=== PATIENT | female | born 1950 | race African-American/Black ===

== ENCOUNTER → 2017-07-23 | Outpatient (CLI) | payer MEDICARE, OTHER ==
--- NOTE | 2017-07-23 11:30 | RAD ---
DATE: 07/23/2017 EXAM: MAMMO JERRY SCREENING BILATERAL HISTORY: Routine screening COMPARISON: Baseline study This study was interpreted with the benefit of Computerized Aided Detection (CAD). The breast parenchyma shows scattered fibroglandular densities. Breast parenchyma level B. FINDINGS: 2-D and 3-D tomosynthesis imaging was performed. In the right breast there is a 2.2 cm mass located at the 12:00 location. Its margins are irregular. It contains several coarse calcifications. On the right oblique view there is a suggestion of an additional smaller nodule partially visualized posteriorly just superior to the level of the nipple line. This is best demonstrated on left oblique jerry image #13. This density is not visible on the right cc view, probably due to its far posterior position. In the left breast there is a 12 mm nodule present in the upper outer quadrant best visualized on CC jerry image #51. There are no associated calcifications. IMPRESSION: Bilateral breast nodules as described above. Diagnostic mammography is suggested including bilateral straight mediolateral views and additional CC imaging on the right in attempt to better demonstrate the far posterior right breast nodule. Bilateral breast ultrasound will also be indicated. BI-RADS CATEGORY: 0 INCOMPLETE: NEEDS ADDITIONAL IMAGING EVALUATION AND/OR PRIOR MAMMOGRAMS FOR COMPARISON. RECOMMENDED FOLLOW-UP: ADD ADDITIONAL IMAGING PQRS compliance statement: Patient information was entered into a reminder system with a target due date for the next mammogram. Mammography is a sensitive method for finding small breast cancers, but it does not detect them all and is not a substitute for careful clinical examination. A negative mammogram does not negate a clinically suspicious finding and should not result in delay in biopsying a clinically suspicious abnormality. "Our facility is accredited by the [employer] Mammography [employer]."
== END | disposition home or self-care (01) ==
LOC: MAMMO 08:31
PROVIDERS: ATTEND Nurse Practitioner Family
DX: Z12.31 Encounter for screening mammogram for malignant neoplasm of breast (principal); N63.0 Unspecified lump in unspecified breast
CPT/HCPCS: 77063; 77067

== ENCOUNTER → 2017-07-27 | Outpatient (CLI) | payer MEDICARE, OTHER ==
--- NOTE | 2017-07-27 17:58 | RAD ---
Left lower extremity venous Doppler dated 07/27/2017. No comparison available. Clinical indication: Pain and swelling. FINDINGS: Grayscale, color-flow and spectral waveform analysis performed to include the deep venous system of the left lower extremity. Normal compressibility, phasicity and augmentation of flow throughout. No filling defects are seen. There is a small complex joint effusion on the left. IMPRESSION: 1. No evidence of left lower extremity deep vein thrombosis. 2. Small complex knee joint effusion on the left. Electronically signed by: Devyn Tenorio MD (07/27/2017 5:55 PM) [facility]
== END | disposition home or self-care (01) ==
LOC: US 17:06
PROVIDERS: ATTEND Physician Assistant Medical
DX: M25.461 Effusion, right knee (principal); M79.89 Other specified soft tissue disorders
CPT/HCPCS: 93971

== ENCOUNTER → 2017-07-29 | Outpatient (CLI) | payer MEDICARE, OTHER ==
--- NOTE | 2017-07-29 12:54 | RAD ---
DATE: 07/29/2017 EXAM: DIGITAL DIAGNOSTIC BILATERAL, BREAST BILATERAL HISTORY: Suspicious screening study COMPARISON: 07/23/2017 This study was interpreted with the benefit of Computerized Aided Detection (CAD). The breast parenchyma shows scattered fibroglandular densities. Breast parenchyma level B. FINDINGS: Additional views of the right breast confirm the presence of a somewhat ill-defined 7-8mm opacity located far posterolaterally at approximately the 9:00 location. A 2.2 mm irregular mass containing coarse calcifications is again noted at the 12:00 location in the right breast. A 12 mm nodule is again noted at the 1 o'clock location in the left breast. Some of its margins are smooth while others are less clearly defined. Bilateral breast ultrasound, 07/29/2017: A targeted ultrasound exam of the right breast at the 12:00 location demonstrates a 13 x 15 x 9 mm heterogeneous nodule. It is wider than tall. It appears to be smoothly lobulated. Peripheral calcifications are present. There is refractive shadowing along its margins. There is no significant posterior acoustic enhancement or shadowing. No internal color flow is seen. The presence of coarse calcification suggests that this is most likely a fibroadenoma. The posterolateral aspect of the right breast was then targeted. At the 8:00 location approximates 7 cm from the nipple there is a 6 x 8 x 6 mm hypoechoic nodule. Its margins are lobulated and somewhat irregular. There appears to be internal color flow. It lies posteriorly near the muscle. The sonographic features are suspicious for malignancy. This probably corresponds in location to the posterolateral mammographic abnormality. At the 12:30 location in the left breast approximately 6 cm from the nipple there is a smooth oval-shaped hypoechoic nodule measuring 9 x 9 x 5 mm. It is wider than tall. No significant posterior acoustic enhancement or shadowing is seen. No internal color flow is evident. This has a fairly benign appearance and is probably a fibroadenoma or complicated cyst. IMPRESSION: 1. Probable fibroadenoma at the 12:00 location in the right breast. 2. Benign-appearing nodule at the 12:30 location in the left breast which is probably a fibroadenoma or complicated cyst. Sonographic surveillance is suggested. 3. Suspicious nodule at the 8:00 location in the right breast as described above. Ultrasound-guided biopsy is suggested for further evaluation. Note: The patient was notified of the recommendation for right biopsy by the apparatus engineering technologist at the time of the exam. She will follow up with the ordering provider. BI-RADS CATEGORY: 4 SUSPICIOUS ABNORMALITY- BIOPSY SHOULD BE CONSIDERED RECOMMENDED FOLLOW-UP: BIO BIOPSY RECOMMENDED PQRS compliance statement: Patient information was entered into a reminder system with a target due date for the next mammogram. Mammography is a sensitive method for finding small breast cancers, but it does not detect them all and is not a substitute for careful clinical examination. A negative mammogram does not negate a clinically suspicious finding and should not result in delay in biopsying a clinically suspicious abnormality. "Our facility is accredited by the [employer] Mammography [employer]."
--- NOTE | 2017-07-29 16:07 | RAD ---
Pelvic ultrasound, 07/29/2017: History: Perineal mass Transabdominal and transvaginal scans were obtained. The uterus is retroverted. It measures 7.7 x 4.8 x 3.5 cm. It demonstrates a heterogeneous echo pattern. There are at least 3 discrete uterine masses compatible with fibroids. The largest of these measures 3.2 cm. The central uterine echo complex is not adequately delineated due to distortion by these masses. The ovaries are of normal size. No adnexal mass is seen. No free fluid is evident in the pelvis. The area of clinical concern in the right mons pubis region was also scanned. The technologist reports an intermittent bulge in this region, particularly when the patient sits up. There appears to be peristaltic activity within this process suggesting a hernia, such as an indirect inguinal hernia. IMPRESSION: 1. Fibroid uterus. 2. The pelvic structures are otherwise unremarkable. 3. Right inguinal hernia.
== END | disposition home or self-care (01) ==
LOC: US 09:03
PROVIDERS: ATTEND Nurse Practitioner Family
DX: D25.9 Leiomyoma of uterus, unspecified (principal); K40.90 Unilateral inguinal hernia, without obstruction or gangrene, not specified as recurrent; R92.8 Other abnormal and inconclusive findings on diagnostic imaging of breast
CPT/HCPCS: 76641; 76830; 76856; 77066

== ENCOUNTER → 2017-09-15 | Outpatient (CLI) | payer MEDICARE, OTHER ==
--- NOTE | 2017-09-15 16:22 | RAD ---
Bone densitometry 09/15/2017 12:44 PM Indication: Postmenopausal screening exam. Comparison Study: None available Discussion: Bone Densitometry was performed with dual photon absorption of the lumbar spine and right proximal femur. Lumbar Spine: Scoliosis of the lumbar spine is noted. 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 Bone average density is 1.357g/cm2 for L1-L4. T-Score is 1.5. Right femoral neck: Bone average density is 0.964g/cm2. T-Score is -0.5. IMPRESSION: Bone mineral density is within normal limits in the measured lumbar spine and right femoral neck Note: Definitions established by the World Health Organization: Normal: T-score is -1.0 or above. Osteopenia: T-score is between -1.0 and -2.5. Osteoporosis: T-score is -2.5 or below. Electronically signed by: Atul Trejo MD (09/15/2017 4:19 PM) [id number]
== END | disposition home or self-care (01) ==
LOC: DXRAD 12:44
PROVIDERS: ATTEND Nurse Practitioner Family
DX: M81.0 Age-related osteoporosis without current pathological fracture (principal); M85.88 Other specified disorders of bone density and structure, other site; M47.896 Other spondylosis, lumbar region; Z78.0 Asymptomatic menopausal state
CPT/HCPCS: 77080

== ENCOUNTER 2017-12-02 11:26 | Emergency (ER) | payer MEDICARE, OTHER ==
[2017-12-02] MEDS ORDERED: IV NORMAL SALINE 1,000ML 1,000 ML IV SCH (12:09)
[2017-12-02] MEDS ORDERED: ONDANSETRON PF 4 MG/2 ML VIAL. IV ONE (12:30)
[2017-12-02 13:09] LABS: BASO % 0 % (0-3); EOS % 0 % (0-3); HEMATOCRIT 40.9 % (36.0-47.0); HEMOGLOBIN 13.4 g/dL (12.0-15.5); LYMPH # 0.6 x10^3/uL (1.0-4.8); LYMPH % 10 % (24-48); MEAN CORPUSCULAR HEMOGLOBIN 28 pg (25-35); MEAN CORPUSCULAR HGB CONC 33 g/dL (31-37); MEAN CORPUSCULAR VOLUME 85 fL (79-100); MONO # 0.3 x10^3/uL (0.0-1.1); MONO % 5 % (0-9); NEUT # 5.1 x10^3uL (1.8-7.7); NEUT % 85 % (31-73); PLATELET COUNT 255 x10^3/uL (140-400); RED BLOOD COUNT 4.82 x10^6/uL (3.50-5.40); RED CELL DISTRIBUTION WIDTH 15.4 % (11.5-14.5)
[2017-12-02 13:21] LABS: ALBUMIN 3.4 g/dL (3.4-5.0); ALBUMIN/GLOBULIN RATIO 0.9 (1.0-1.7); CALCIUM 8.9 mg/dL (8.5-10.1); CREATININE 0.5 mg/dL (0.6-1.0); POTASSIUM 3.5 mmol/L (3.5-5.1); TOTAL BILIRUBIN 0.4 mg/dL (0.2-1.0)
[2017-12-02 15:20] LABS: BACTERIA,URINE 0 /HPF (0-FEW); BILIRUBIN,URINE NEG (NEG); CLARITY,URINE CLEAR; COLOR,URINE STRAW; GLUCOSE,URINE NEG (NEG); NITRITE,URINE NEG (NEG); RBC,URINE OCC /HPF (0-2); SQUAMOUS EPITHELIAL CELL,UR FEW /LPF; UROBILINOGEN,URINE 0.2 mg/dL (0.2 mg/dL); WBC,URINE OCC /HPF (0-4)
[2017-12-02] MEDS ORDERED: ONDA4TAB10 SL (15:30)
[2017-12-02] MEDS ORDERED: HYDR-971 PO (15:30)
--- NOTE | 2017-12-02 15:30 | PHYS DOC ---
Past History Past Medical History: Cancer, Hypertension Past Surgical History: Knee Replacement Alcohol Use: None Drug Use: None Adult General Chief Complaint Chief Complaint: ABDOMINAL PAIN HPI HPI 67-year-old female patient complaining of 2 episodes of vomiting and 2 episodes of diarrhea yesterday and episodes of diarrhea today without vomiting today with generalized abdominal cramping pain and generalized weakness. Patient complaining of chills without fever and denies urinary symptoms, sick contact, history of the same problem. Patient was diagnosed with breast cancer recently and plans to start radiation therapy in few days. Review of Systems Review of Systems Constitutional: Denies fever or chills [] Eyes: Denies change in visual acuity, redness, or eye pain [] HENT: Denies nasal congestion or sore throat [] Respiratory: Denies cough or shortness of breath [] Cardiovascular: No additional information not addressed in HPI [] GI: Reports abdominal pain, nausea, vomiting, diarrhea [] : Denies dysuria or hematuria [] Musculoskeletal: Denies back pain or joint pain [] Integument: Denies rash or skin lesions [] Neurologic: Denies headache, focal weakness or sensory changes [] Endocrine: Denies polyuria or polydipsia [] All other systems were reviewed and found to be within normal limits, except as documented in this note. Current Medications Current Medications Current Medications Medications (Trade) Dose Ordered Sig/Chase Start Time Stop Time Status Last Admin Dose Admin Fentanyl Citrate (Fentanyl 2ml Vial) 50 mcg 1X ONCE 12/02/17 13:30 12/02/17 13:36 DC 12/02/17 13:32 50 MCG Ondansetron HCl (Zofran) 4 mg 1X ONCE 12/02/17 12:30 12/02/17 12:31 DC 12/02/17 12:25 4 MG Sodium Chloride 1,000 ml @ 1,000 mls/hr Q1H 12/02/17 12:09 12/02/17 13:08 DC 12/02/17 12:24 1,000 MLS/HR Allergies Allergies Allergies Coded Allergies Type Severity Reaction Last Updated Verified No Known Drug Allergies 12/02/17 No Physical Exam Physical Exam Constitutional: Well developed, well nourished, moderate distress, non-toxic appearance. [] HENT: Normocephalic, atraumatic, oropharynx moist, no oral exudates, nose normal. [] Eyes: PERRLA, EOMI, conjunctiva normal, no discharge. [] Neck: Normal range of motion, no tenderness, supple, no stridor. [] Cardiovascular:Heart rate regular rhythm, no murmur [] Lungs & Thorax: Bilateral breath sounds clear to auscultation [] Abdomen: Bowel sounds normal, soft, generalized guarding, no tenderness, no masses, no pulsatile masses. [] Skin: Warm, dry, no erythema, no rash. [] Back: No tenderness, no CVA tenderness. [] Extremities: No tenderness, no cyanosis, no clubbing, ROM intact, no edema. [] Neurologic: Alert and oriented X 3, normal motor function, normal sensory function, no focal deficits noted. [] Psychologic: Affect anxious, judgement normal, mood normal. [] Current Patient Data Vital Signs Vital Signs Date Time Temp Pulse Resp B/P (MAP) Pulse Ox O2 Delivery O2 Flow Rate FiO2 12/02/17 13:32 0 91 Room Air 12/02/17 11:30 97.6 64 Lab Results Laboratory Tests Test 12/02/17 12:51 12/02/17 14:50 White Blood Count 6.0 x10^3/uL (4.0-11.0) Red Blood Count 4.82 x10^6/uL (3.50-5.40) Hemoglobin 13.4 g/dL (12.0-15.5) Hematocrit 40.9 % (36.0-47.0) Mean Corpuscular Volume 85 fL (79-100) Mean Corpuscular Hemoglobin 28 pg (25-35) Mean Corpuscular Hemoglobin Concent 33 g/dL (31-37) Red Cell Distribution Width 15.4 % (11.5-14.5) H Platelet Count 255 x10^3/uL (140-400) Neutrophils (%) (Auto) 85 % (31-73) H Lymphocytes (%) (Auto) 10 % (24-48) L Monocytes (%) (Auto) 5 % (0-9) Eosinophils (%) (Auto) 0 % (0-3) Basophils (%) (Auto) 0 % (0-3) Neutrophils # (Auto) 5.1 x10^3uL (1.8-7.7) Lymphocytes # (Auto) 0.6 x10^3/uL (1.0-4.8) L Monocytes # (Auto) 0.3 x10^3/uL (0.0-1.1) Eosinophils # (Auto) 0.0 x10^3/uL (0.0-0.7) Basophils # (Auto) 0.0 x10^3/uL (0.0-0.2) Prothrombin Time 10.9 SEC (9.4-11.4) Prothrombin Time INR 1.1 (0.9-1.1) Sodium Level 138 mmol/L (136-145) Potassium Level 3.5 mmol/L (3.5-5.1) Chloride Level 106 mmol/L (98-107) Carbon Dioxide Level 25 mmol/L (21-32) Anion Gap 7 (6-14) Blood Urea Nitrogen 16 mg/dL (7-20) Creatinine 0.5 mg/dL (0.6-1.0) L Estimated GFR (Cockcroft-Gault) 148.0 BUN/Creatinine Ratio 32 (6-20) H Glucose Level 109 mg/dL (70-99) H Lactic Acid Level 0.4 mmol/L (0.4-2.0) Calcium Level 8.9 mg/dL (8.5-10.1) Total Bilirubin 0.4 mg/dL (0.2-1.0) Aspartate Amino Transferase (AST) 18 U/L (15-37) Alanine Aminotransferase (ALT) 20 U/L (14-59) Alkaline Phosphatase 80 U/L (46-116) Troponin I Quantitative < 0.017 ng/mL (0-0.055) Total Protein 7.0 g/dL (6.4-8.2) Albumin 3.4 g/dL (3.4-5.0) Albumin/Globulin Ratio 0.9 (1.0-1.7) L Lipase 119 U/L (73-393) Urine Collection Type U cath Urine Color Straw Urine Clarity Clear Urine pH 6.5 Urine Specific Dustin 1.015 Urine Protein Neg (NEG-TRACE) Urine Glucose (UA) Neg mg/dL (NEG) Urine Ketones (Stick) Trace mg/dL (NEG) Urine Blood Neg (NEG) Urine Nitrite Neg (NEG) Urine Bilirubin Neg (NEG) Urine Urobilinogen Dipstick 0.2 mg/dL (0.2 mg/dL) Urine Leukocyte Esterase Neg (NEG) Urine RBC Occ /HPF (0-2) Urine WBC Occ /HPF (0-4) Urine Squamous Epithelial Cells Few /LPF Urine Bacteria 0 /HPF (0-FEW) Urine Mucus Slight /LPF EKG EKG [] Radiology/Procedures Radiology/Procedures [] Course & Med Decision Making Course & Med Decision Making Pertinent Labs reviewed. (See chart for details) Evaluation of patient in ER showed 67-year-old male patient with complaining of few episode of nausea and vomiting and diarrhea since yesterday with generalized abdominal pain. Patient treated with IV fluid and Zofran and fentanyl and felt better and ambulated without problem and tolerated oral intake. She had unremarkable labs including lactic acid. Plan discharge patient home with diagnosis of acute gastroenteritis. Dragon Disclaimer Dragon Disclaimer This electronic medical record was generated, in whole or in part, using a voice recognition dictation system. Departure Departure: Impression: Primary Impression: Acute gastroenteritis Additional Impression: Breast cancer Disposition: HOME, SELF-CARE (at 1528) Condition: IMPROVED Referrals: CHAKA AVITIA DO (PCP) Patient Instructions: Viral Gastroenteritis Additional Instructions: Drink plenty of liquids Follow-up with your primary care physician in 3-5 days Return to ER if not getting better Scripts Hydrocodone Bit/Acetaminophen (NORCO 5-325 TABLET) 1 Each Tablet 1 TAB PO PRN Q6HRS PRN for PAIN, #10 TAB 0 Refills Prov: LEONOR PIZANO MD 12/02/17 Ondansetron (ZOFRAN ODT) 4 Mg Tab.rapdis 1 TAB SL Q8HRS, #15 TAB Prov: LEONOR PIZANO MD 12/02/17 Problem Qualifiers LEONOR PIZANO MD Dec 02, 2017 15:30
[2017-12-02 16:06] VITALS: BP 114/66
== END 2017-12-02 16:15 | disposition home or self-care (01) ==
LOC: ER 11:26
DX: K52.89 Other specified noninfective gastroenteritis and colitis (principal); C50.911 Malignant neoplasm of unspecified site of right female breast; I10 Essential (primary) hypertension
CPT/HCPCS: 36415; 80053; 81001; 83605; 83690; 84484; 85025; 85610; 87040; 96361; 96374; 96375; 99285; J2405; J3010; J7030

== ENCOUNTER → 2020-01-10 | Outpatient (CLI) | payer MEDICARE, OTHER ==
[~2020-01-10] MED LIST: HYDR-3165 PO; ONDA4TAB10 SL
--- NOTE | 2020-01-10 10:41 | RAD ---
EXAM: Left lower extremity venous Doppler. HISTORY: Left lower extremity pain and swelling for 3 weeks COMPARISON: None. FINDINGS: Grayscale and Doppler analysis of the left lower extremity deep venous systems was performed with graded compression and augmentation. The common femoral, greater saphenous, superficial femoral, popliteal and calf veins were assessed. There is no evidence of deep venous thrombosis. However, thrombosis in a superficial vessel in the left calf is apparent, with associated soft tissue edema in the subcutaneous fat. IMPRESSION: 1. No evidence of deep venous thrombosis. 2. Superficial venous thrombosis of the left calf. Report telephoned by the technologist at my request at approximately 10:40 AM 01/10/2020 Electronically signed by: Angela Rivera MD (01/10/2020 10:38 AM) [id number]
== END | disposition home or self-care (01) ==
LOC: US 09:11
PROVIDERS: ATTEND Family Medicine
DX: I82.812 Embolism and thrombosis of superficial veins of left lower extremity (principal); M79.89 Other specified soft tissue disorders
CPT/HCPCS: 93971

== ENCOUNTER → 2020-09-04 | Outpatient (CLI) | payer MEDICARE, OTHER ==
--- NOTE | 2020-09-04 09:21 | RAD ---
EXAM: Bilateral digital screening mammogram with tomosynthesis. HISTORY: 69-year-old female with a history of right breast cancer, status post right breast conservat ion therapy, presents for screening mammography. TECHNIQUE: Full-field digital craniocaudal and mediolateral oblique 2D and 3D tomosynthesis images of both breasts are obtained for evaluation. Computer aided detection was applied. COMPARISON: 07/29/2017 and 07/23/2017 BREAST PARENCHYMAL DENSITY: Level C - Heterogeneously dense. FINDINGS: There is stable asymmetry in left greater than right breast size and there is lateral right breast architectural distortion and surgical clips due to prior right breast conservation therapy. T here is a stable nodule containing coarse calcifications within the right breast. There is a biopsy c lip within this location. There is asymmetry within the posterior medial right breast which is not pe rsist between projections and is due to summation artifact. There is a stable nodular asymmetry withi n the medial left breast. There is also stable circumscribed nodule containing a biopsy clip within t he lateral left breast. There is no new suspicious mammographic finding. IMPRESSION: 1. Findings consistent with right breast conservation therapy. 2. Stable nodules containing biopsy clips within both breasts, better characterized on the prior sono gram dated 07/27/2017. The greater than 3 year course of stability and prior benign biopsy findings as sociated with these lesions confirms benignity. 3. No new suspicious sonographic finding. 4. BI-RADS Category 2: Benign finding(s). RECOMMENDATION: Annual mammography is recommended. If your mammogram demonstrates that you have dense breast tissue, which could hide abnormalities, and if you have other risk factors for breast cancer that have been identified, you might benefit from s upplemental screening tests that may be suggested by your ordering physician. Dense breast tissue, i n and of itself, is a relatively common condition. This information is not provided to cause undue c oncern, but rather to raise your awareness and to promote discussion with your physician regarding th e presence of other risk factors, in addition to dense breast tissue. A report of your mammography re sults will be sent to you and your physician. You should contact your physician if you have any ques tions or concerns regarding this report. Mammography is a sensitive method for finding small breast cancers, but it does not detect them all a nd is not a substitute for careful clinical examination. A negative mammogram does not negate a clin ically suspicious finding and should not result in delay in biopsying a clinically suspicious abnorma lity. PQRS compliance statement - Patient information was entered into a reminder system with a target due date for the next mammogram. "Our facility is accredited by the [employer] Mammography [employer]." Electronically signed by: Snow Matta MD (09/04/2020 9:18 AM) [id number]
== END ==
LOC: MAMMO 08:18
PROVIDERS: ATTEND Family Medicine
DX: Z12.31 Encounter for screening mammogram for malignant neoplasm of breast (principal); N63.10 Unspecified lump in the right breast, unspecified quadrant; N63.20 Unspecified lump in the left breast, unspecified quadrant
CPT/HCPCS: 77063; 77067